=== PATIENT | male | born 1975 | race Caucasian/White ===

== ENCOUNTER 2017-10-17 11:05 | Day surgery (SDC) | payer OTHER ==
[~2017-10-17] VITALS: Ht 170.2 cm; Wt 96.2 kg
[~2017-10-17 11:05] MED LIST: CEFAZOLIN SOD 1 GM in D5W 50 ML IV ONE
[2017-10-17] MEDS ORDERED: POLYMYXIN 500,000/BACIT.10,000 UNITS in NS IRR 1 L IR ONE (13:20)
[2017-10-17] MEDS ORDERED: LR 1,000 ML IV SCH (13:59)
[2017-10-17] MEDS ORDERED: METOCLOPRAMIDE HCL 10 MG/2 ML VIAL IVP PRN (14:00)
[2017-10-17] MEDS ORDERED: MORPHINE 4 MG/ML INJ. SYRINGE IVP PRN ×2 (14:00)
[2017-10-17] MEDS ORDERED: D5/0.45 NS 1,000 ML IV SCH (14:20)
[2017-10-17] MEDS ORDERED: HYDROmorphone 1 MG INJ. 1 MG/ML AMPUL IVP PRN (14:30)
[2017-10-17] MEDS ORDERED: HYDROcodone/ACETAMIN 5-325 MG TAB (NORCO/ VICODIN) PO PRN ×2 (14:30)
[2017-10-17] MEDS: MORPHINE 4 MG/ML INJ. SYRINGE IVP PRN ×2 (14:41→14:46)
[2017-10-17] MEDS ORDERED: MORPHINE 4 MG/ML INJ. SYRINGE ONE (14:41)
[2017-10-17] MEDS ORDERED: HYDROcodone/ACETAMIN 5-325 MG TAB (NORCO/ VICODIN) ONE (15:33)
[2017-10-17] MEDS ORDERED: PROMETHAZINE HCL 25 MG/ML AMP ONE (16:57)
[2017-10-17] MEDS ORDERED: MEPERIDINE HCL/PF 100 MG/ML AMP ONE (16:57)
[2017-10-17] MEDS ORDERED: MEPERIDINE HCL/PF 100 MG/ML AMP IM PRN (17:00)
[2017-10-17] MEDS ORDERED: PROMETHAZINE HCL 25 MG/ML AMP IM PRN (17:00)
[2017-10-17 18:30] VITALS: BP_SYST 116
== END 2017-10-17 18:10 | disposition home or self-care (01) ==
LOC: SDS 11:05 → SMU 11:05 → SDS 18:10
PROVIDERS: ATTEND Colon & Rectal Surgery
DX: K42.0 Umbilical hernia with obstruction, without gangrene (principal); H16.001 Unspecified corneal ulcer, right eye; Z98.890 Other specified postprocedural states; Z68.32 Body mass index [BMI] 32.0-32.9, adult; Z79.899 Other long term (current) drug therapy; E66.01 Morbid (severe) obesity due to excess calories; B34.9 Viral infection, unspecified; Z82.49 Family history of ischemic heart disease and other diseases of the circulatory system
CPT/HCPCS: 49587; 88302; C1781; J0690; J2175; J2270; J2550; J7060; J7120